=== PATIENT | female | born 1950 | race Caucasian/White ===

== ENCOUNTER 2020-03-20 10:30 | Emergency (ER) | payer MEDICARE ==
[~2020-03-20] VITALS: Ht 167.6 cm; Wt 81.8 kg
[2020-03-20 10:37] VITALS: BP 144/88
--- NOTE | 2020-03-20 10:52 | NUR ---
Splint removed, ice pack provided;pending xray.
[2020-03-20] MEDS ORDERED: HYDR-3965 PO (11:13)
== END 2020-03-20 11:54 | disposition home or self-care (01) ==
LOC: ER 10:31
DX: S52.501A Unspecified fracture of the lower end of right radius, initial encounter for closed fracture (principal); S52.511A Displaced fracture of right radial styloid process, initial encounter for closed fracture; M25.531 Pain in right wrist; E78.00 Pure hypercholesterolemia, unspecified; E11.9 Type 2 diabetes mellitus without complications; Z90.49 Acquired absence of other specified parts of digestive tract; Z79.899 Other long term (current) drug therapy; W18.39XA Other fall on same level, initial encounter; Y93.89 Activity, other specified; Y92.89 Other specified places as the place of occurrence of the external cause; Y99.8 Other external cause status
CPT/HCPCS: 73110; 99283